=== PATIENT | male | born 1995 | race Caucasian/White ===

== ENCOUNTER 2018-05-31 22:20 | Emergency (ER) | payer SELFPAY, OTHER ==
[2018-05-31 23:01] LABS: ADD MAN DIFF? NO
[2018-05-31 23:03] LABS: BASOPHIL # 0.2 10^3/ul (0.0-0.1); BASOPHILS % 1.2 % (0.0-2.0); EOSINOPHILS # 0.3 10^3/ul (0.0-0.5); EOSINOPHILS % 2.2 % (0.0-7.0); HEMATOCRIT 42.8 % (42.0-52.0); HEMOGLOBIN 14.8 g/dl (14.0-18.0); LYMPHOCYTES # 2.8 10^3/ul (0.8-2.9); LYMPHOCYTES % 21.6 % (15.0-51.0); MEAN CORPUSCULAR HEMOGLOBIN 30.3 pg (29.0-33.0); MEAN CORPUSCULAR HGB CONC 34.6 g/dl (32.0-37.0); MEAN CORPUSCULAR VOLUME 87.7 fl (82.0-101.0); MEAN PLATELET VOLUME 10.1 fl (7.4-10.4); MONOCYTE # 0.6 10^3/ul (0.3-0.9); MONOCYTES % 4.7 % (0.0-11.0); NEUTROPHIL # 8.9 10^3/ul (1.6-7.5); NEUTROPHILS % 68.6 % (39.0-77.0); PLATELET COUNT 357 10^3/UL (140-415); RED BLOOD COUNT 4.88 10^6/ul (4.70-6.10)
[2018-05-31] MEDS: SOD CHLORIDE 0.9% 1,000 ML IV (23:07)
[2018-05-31 23:08] LABS: ANION GAP 13 (5-13); BLOOD UREA NITROGEN 12 mg/dl (7-20); CALCIUM 8.9 mg/dl (8.4-10.2); CARBON DIOXIDE 24 mmol/L (21-31); CHLORIDE 101 mmol/L (97-110); Estimated GFR > 60 mL/min (>60); GLUCOSE 191 mg/dl (70-220); POTASSIUM 3.3 mmol/L (3.5-5.1); SODIUM 138 mmol/L (135-144)
[2018-05-31 23:20] LABS: TROPONIN-I < 0.012 ng/ml (0.000-0.120)
[2018-05-31 23:38] LABS: THYROID STIMULATING HORMONE 0.696 MIU/L (0.465-4.680)
[2018-05-31 23:41] LABS: ETHANOL < 10.0 mg/dl (0-0)
[2018-06-01 00:03] LABS: AMPHETAMINE/METHAMPHETAMINE Negative (NEGATIVE); BARBITURATES Negative (NEGATIVE); BENZODIAZEPINES Negative (NEGATIVE); CANNABINOIDS Positive (NEGATIVE); COCAINE Negative (NEGATIVE); OPIATES Negative (NEGATIVE)
[2018-06-01] MEDS: POTASSIUM CHLORIDE (SR) 20 MEQ TAB PO (00:11)
[2018-06-01] MEDS: SOD CHLORIDE 0.9% 1,000 ML IV (00:30)
== END 2018-06-01 03:37 | disposition home or self-care (01) ==
LOC: E/R 22:20
DX: I47.1 Supraventricular tachycardia (principal); E87.6 Hypokalemia; D72.829 Elevated white blood cell count, unspecified; F12.10 Cannabis abuse, uncomplicated
CPT/HCPCS: 36415; 71045; 80048; 80307; 84443; 84484; 85025; 93005; 99285-25